=== PATIENT | female | born 1985 | race Caucasian/White ===

== ENCOUNTER 2016-03-29 09:50 | Day surgery (SDC) | payer OTHER ==
[~2016-03-29] VITALS: Ht 165.1 cm; Wt 94.3 kg
[~2016-03-29 09:50] MED LIST: IBUPROFEN800 MG PO; LO LOESTRIN FE1 EACH PO; PRENATAL TABLE1 EAC3 PO
[2016-03-29 10:10] VITALS: BP 136/90
[2016-03-29 14:45] VITALS: BP 117/80
[2016-03-29 15:44] VITALS: BP 129/75
== END 2016-03-29 15:50 | disposition home or self-care (01) ==
LOC: SDC 09:50
PROC: 0UDB8ZX Extraction of Endometrium, Via Natural or Artificial Opening Endoscopic, Diagnostic (ICD-10-PCS; principal; 2016-03-29)
DX: N84.0 Polyp of corpus uteri (principal); N80.9 Endometriosis, unspecified; R93.8 Abnormal findings on diagnostic imaging of other specified body structures
CPT/HCPCS: 88305; J1100; J1885; J2250; J2405; J3010

== ENCOUNTER 2016-11-24 13:38 | Emergency (ER) | payer OTHER ==
[~2016-11-24] VITALS: Ht 165.1 cm; Wt 102.6 kg
[2016-11-24 14:45] LABS: ADD MIUA? YES; BILIRUBIN NEGATIVE; BLOOD NEGATIVE; COLOR YELLOW ((YELLOW)); GLUCOSE (STRIP) NEGATIVE; KETONES NEGATIVE; LEUKOCYTES NEGATIVE; NITRITE NEGATIVE; PROTEIN (STRIP) NEGATIVE; SPECIFIC GRAVITY 1.016 (1.000-1.030); UROBILINOGEN 0.2 MG/DL (0.2-1.0)
[2016-11-24 14:55] LABS: BACTERIA RARE /HPF; EPITHELIAL CELLS 1+ /HPF; MUCUS TRACE /LPF; RED BLOOD CELLS 0-5 /HPF (0-5); UCUL ADDED? NO; UNCLASSIFIED CRYSTALS 2+ /HPF; WHITE BLOOD CELLS 0-5 /HPF (0-5)
[2016-11-24 16:31] VITALS: BP 126/81
== END 2016-11-24 16:32 | disposition home or self-care (01) ==
LOC: EME 13:38
PROVIDERS: Emergency Medicine
DX: O26.893 Other specified pregnancy related conditions, third trimester (principal); R42 Dizziness and giddiness; R11.0 Nausea; Z3A.29 29 weeks gestation of pregnancy
CPT/HCPCS: 81003; 93005; 99281; 99284; J7040

== ENCOUNTER 2016-12-04 18:34 | Outpatient (CLI) | payer OTHER ==
[~2016-12-04] VITALS: Ht 165.1 cm; Wt 102.5 kg
[~2016-12-04 18:34] MED LIST changes: +LABETALOL HCL100 MG PO
[2016-12-04] MEDS ORDERED: FA-80.8 MG PO (18:48)
[2016-12-04] MEDS ORDERED: COLACE100 MG PO (18:48)
[2016-12-04 18:51] VITALS: BP 125/76
[2016-12-05] MEDS ORDERED: ZITHROMAX500 MG PO (19:06)
[2016-12-05] MEDS ORDERED: PEPCID20 MG PO (19:06)
== END 2016-12-04 20:20 | disposition home or self-care (01) ==
LOC: LDRP-OP 18:34 → 2WEST 18:35 → LDRP-OP 03-09 02:52
DX: O16.3 Unspecified maternal hypertension, third trimester (principal); Z3A.30 30 weeks gestation of pregnancy; O99.513 Diseases of the respiratory system complicating pregnancy, third trimester; O30.003 Twin pregnancy, unspecified number of placenta and unspecified number of amniotic sacs, third trimester
CPT/HCPCS: 59025; G0378

== ENCOUNTER 2016-12-05 15:59 | Outpatient (CLI) | payer OTHER ==
[2016-12-05] VITALS (8 sets, daily range): BP systolic 134–157; BP diastolic 78–95
[~2016-12-05 15:59] MED LIST changes: +COLACE100 MG PO; +FA-80.8 MG PO
[2016-12-05 18:18] LABS: BASOPHIL COUNT 0.1 K/uL (0-0.1); EOSINOPHIL (%) 0.1 % (0-5); HEMATOCRIT 37.9 % (36.0-46.0); IMMATURE GRANULOCYTE (%) 3.6 % (0.0-0.7); IMMATURE GRANULOCYTE COUNT 0.7 K/uL; INSTRUMENT ABS NEUTROPHIL CT 15.7 K/uL; LYMPHOCYTE COUNT 1.8 K/uL (1.0-2.8); MCH 30.7 PG (29.0-34.0); MCHC 33.8 G/DL (30.0-36.0); MCV 90.9 FL (83-99); MEAN PLAT.VOLUME 11.5 uM^3 (9.5-12.4); MONOCYTE (%) 7.8 % (3-12); MONOCYTE COUNT 1.6 K/uL (0-0.8); NEUTROPHIL (%) 78.9 % (45-76); NEUTROPHIL COUNT 15.7 K/uL (1.8-6.4); PLATELET COUNT 188 K/uL (156-360); RBC DIS.WIDTH-CV 13.6 % (11.8-14.6); RBC DIS.WIDTH-SD 45.2 % (39-53); RED BLOOD COUNT 4.17 M/uL (3.80-5.20); WHITE BLOOD COUNT 19.8 K/uL (4.1-10.2)
[2016-12-05 18:26] LABS: UR CREATININE CONCENTRATION 41.5 MG/DL
[2016-12-05 18:36] LABS: ANION GAP 11 MEQ/L (2-14); CHLORIDE 107 MEQ/L (99-109); POTASSIUM 3.4 MEQ/L (3.7-5.4); SAMPLE HEMOLYSIS CHECK 0; SAMPLE ICTERIC CHECK 0; SAMPLE LIPEMIA CHECK 0; SODIUM 137 MEQ/L (136-147); TOTAL BILIRUBIN 0.2 MG/DL (0.0-1.0)
[2016-12-05 18:41] LABS: ALKALINE PHOSPHATASE 108 IU/L (3-129); GFR ESTIMATE (CALCULATED) > 59 mL/min/; GLUCOSE 127 mg/dL (70-99); UREA NITROGEN (BUN) 10 mg/dL (9-23); URIC ACID 6.3 mg/dL (3.1-9.2)
[2016-12-05] MEDS ORDERED: PEPCID20 MG PO (19:06)
[2016-12-05] MEDS ORDERED: ZITHROMAX500 MG PO (19:06)
== END 2016-12-05 19:15 | disposition home or self-care (01) ==
LOC: LDRP-OP 15:59 → 2WEST 16:00 → LDRP-OP 03-09 21:15
PROVIDERS: Obstetrics & Gynecology Gynecology
DX: O26.893 Other specified pregnancy related conditions, third trimester (principal); Z3A.31 31 weeks gestation of pregnancy; R23.2 Flushing
CPT/HCPCS: 59025; 80053; 82570; 84156; 84550; 85025; G0378

== ENCOUNTER 2017-01-01 14:47 | Outpatient (CLI) | payer OTHER ==
[~2017-01-01 14:47] MED LIST changes: +PEPCID20 MG PO; +ZITHROMAX500 MG PO
[2017-01-01 15:06] VITALS: BP 135/80
[2017-01-01] MEDS ORDERED: LABETALOL HCL200 MG PO (15:13)
[2017-01-01] MEDS ORDERED: COLACE100 MG PO (15:15)
== END 2017-01-01 15:58 | disposition home or self-care (01) ==
LOC: LDRP-OP 14:47 → 2WEST 14:48 → LDRP-OP 03-09 19:26
DX: O36.5930 Maternal care for other known or suspected poor fetal growth, third trimester, not applicable or unspecified (principal); O30.003 Twin pregnancy, unspecified number of placenta and unspecified number of amniotic sacs, third trimester; Z3A.35 35 weeks gestation of pregnancy
CPT/HCPCS: 59025; G0378

== ENCOUNTER 2017-01-01 20:01 | Outpatient (CLI) | payer OTHER ==
[~2017-01-01 20:01] MED LIST changes: +LABETALOL HCL200 MG PO
[2017-01-01 20:19] VITALS: BP 121/70
== END 2017-01-01 23:07 | disposition home or self-care (01) ==
LOC: LDRP-OP 20:01 → 2WEST 20:02 → LDRP-OP 03-09 16:25
DX: O36.5930 Maternal care for other known or suspected poor fetal growth, third trimester, not applicable or unspecified (principal); O30.003 Twin pregnancy, unspecified number of placenta and unspecified number of amniotic sacs, third trimester; Z3A.35 35 weeks gestation of pregnancy
CPT/HCPCS: 59025; 76810; 76815; 76818; G0378

== ENCOUNTER 2017-01-04 10:07 | Inpatient (IN) | payer OTHER ==
[2017-01-04] VITALS (8 sets, daily range): BP systolic 111–126; BP diastolic 61–78
[~2017-01-04] VITALS: Ht 165.1 cm; Wt 109.5 kg
[2017-01-04 11:17] LABS: EOSINOPHIL (%) 0.6 % (0-5); EOSINOPHIL COUNT 0.1 K/uL (0-0.3); HEMATOCRIT 38.7 % (36.0-46.0); IMMATURE GRANULOCYTE COUNT 0.1 K/uL; INSTRUMENT ABS NEUTROPHIL CT 8.2 K/uL; LYMPHOCYTE COUNT 1.4 K/uL (1.0-2.8); MCH 31.1 PG (29.0-34.0); MCHC 34.4 G/DL (30.0-36.0); MCV 90.6 FL (83-99); MEAN PLAT.VOLUME 12.4 uM^3 (9.5-12.4); MONOCYTE (%) 7.9 % (3-12); MONOCYTE COUNT 0.8 K/uL (0-0.8); NEUTROPHIL COUNT 8.2 K/uL (1.8-6.4); PLATELET COUNT 137 K/uL (156-360); RBC DIS.WIDTH-CV 14.2 % (11.8-14.6); RBC DIS.WIDTH-SD 47.2 % (39-53); RED BLOOD COUNT 4.27 M/uL (3.80-5.20); WHITE BLOOD COUNT 10.6 K/uL (4.1-10.2)
[2017-01-04] MEDS ORDERED: MOTRIN800 MG PO (14:55)
[2017-01-04] MEDS ORDERED: PERCOCET 5/31 TABLET PO (14:55)
[2017-01-05 07:05] VITALS: BP 114/57
[2017-01-05 07:18] LABS: EOSINOPHIL (%) 0.2 % (0-5); IMMATURE GRANULOCYTE (%) 0.8 % (0.0-0.7); IMMATURE GRANULOCYTE COUNT 0.1 K/uL; INSTRUMENT ABS NEUTROPHIL CT 12.2 K/uL; LYMPHOCYTE COUNT 1.9 K/uL (1.0-2.8); MCV 91.1 FL (83-99); MEAN PLAT.VOLUME 12.1 uM^3 (9.5-12.4); MONOCYTE (%) 6.8 % (3-12); MONOCYTE COUNT 1.1 K/uL (0-0.8); NEUTROPHIL (%) 79.4 % (45-76); NEUTROPHIL COUNT 12.2 K/uL (1.8-6.4); PLATELET COUNT 127 K/uL (156-360); RBC DIS.WIDTH-CV 14.1 % (11.8-14.6); RED BLOOD COUNT 3.84 M/uL (3.80-5.20); WHITE BLOOD COUNT 15.4 K/uL (4.1-10.2)
[2017-01-05 11:02] VITALS: BP 99/50
[2017-01-05 15:04] VITALS: BP 129/77
[2017-01-06 07:59] VITALS: BP 142/77
[2017-01-06 12:51] VITALS: BP 142/96
[2017-01-06 16:41] VITALS: BP 142/88
[2017-01-07 07:47] VITALS: BP 145/71
[2017-01-07 11:51] VITALS: BP 160/78
[2017-01-07 14:39] VITALS: BP 145/93
[2017-01-07 19:33] VITALS: BP 131/82
[2017-01-07 23:28] VITALS: BP 133/85
[2017-01-08 02:59] VITALS: BP 132/79
[2017-01-08 09:54] VITALS: BP 135/75
[2017-01-08] MEDS ORDERED: NIFEDIPINE ER30 MG PO (10:45)
== END 2017-01-08 14:41 | disposition home or self-care (01) | DRG 765 ==
LOC: LDRP-OP 10:07 → 2WEST 10:08 → LDRP-OP 03-09 23:42
PROVIDERS: Obstetrics & Gynecology; Obstetrics & Gynecology Obstetrics
DX: O60.14X1 Preterm labor third trimester with preterm delivery third trimester, fetus 1 (principal); O60.14X2 Preterm labor third trimester with preterm delivery third trimester, fetus 2; O30.043 Twin pregnancy, dichorionic/diamniotic, third trimester; Z37.2 Twins, both liveborn; O32.1XX2 Maternal care for breech presentation, fetus 2; O36.5931 Maternal care for other known or suspected poor fetal growth, third trimester, fetus 1; O13.4 Gestational [pregnancy-induced] hypertension without significant proteinuria, complicating childbirth; O99.214 Obesity complicating childbirth; E66.9 Obesity, unspecified; Z68.35 Body mass index [BMI] 35.0-35.9, adult; Z30.2 Encounter for sterilization; Z3A.35 35 weeks gestation of pregnancy; O99.52 Diseases of the respiratory system complicating childbirth; J45.909 Unspecified asthma, uncomplicated
CPT/HCPCS: 59025; 76810; 76815; 76818; 85025; 86850; 86900; 86901; 88302; 88307; G0378; J1100; J2274; J2405; J2550; J7120

== ENCOUNTER 2017-07-11 09:50 | Emergency (ER) | payer OTHER ==
[~2017-07-11] VITALS: Ht 165.1 cm; Wt 96.7 kg
[~2017-07-11 09:50] MED LIST changes: +MOTRIN800 MG PO; +NIFEDIPINE ER30 MG PO; +PERCOCET 5/31 TABLET PO
[2017-07-11 11:32] LABS: HEMATOCRIT 45.6 % (36.0-46.0); HEMOGLOBIN 15.8 G/DL (11.9-15.5); MCH 29.8 PG (29.0-34.0); MCHC 34.6 G/DL (30.0-36.0); MCV 85.9 FL (83-99); PLATELET COUNT 253 K/uL (156-360); RBC DIS.WIDTH-CV 12.4 % (11.8-14.6); RED BLOOD COUNT 5.31 M/uL (3.80-5.20); WHITE BLOOD COUNT 13.3 K/uL (4.1-10.2)
[2017-07-11 11:41] LABS: ALBUMIN 4.3 g/dL (3.2-4.8)
[2017-07-11 11:42] LABS: CHLORIDE 105 mEq/L (99-109); POTASSIUM 3.8 mEq/L (3.7-5.4); SODIUM 137 mEq/L (136-147)
[2017-07-11 11:44] LABS: GLUCOSE 103 mg/dL (70-99)
[2017-07-11 11:46] LABS: TOTAL BILIRUBIN 0.9 mg/dL (0.0-1.0)
[2017-07-11 11:47] LABS: ALKALINE PHOSPHATASE 99 IU/L (3-129)
[2017-07-11 11:48] LABS: CREATININE 0.9 mg/dL (0.6-1.3); GFR ESTIMATE (CALCULATED) > 59 mL/min/
[2017-07-11 11:48] LABS: APPEARANCE CLEAR ((CLEAR)); BILIRUBIN NEGATIVE; BLOOD NEGATIVE; COLOR YELLOW ((YELLOW)); GLUCOSE (STRIP) NEGATIVE; KETONES NEGATIVE; LEUKOCYTES NEGATIVE; NITRITE NEGATIVE; PROTEIN (STRIP) NEGATIVE; SPECIFIC GRAVITY 1.023 (1.000-1.030); UCUL ADDED? NO; UROBILINOGEN 0.2 MG/DL (0.2-1.0)
[2017-07-11 11:49] LABS: AST (GOT) 17 IU/L (2-34); UREA NITROGEN (BUN) 12 mg/dL (9-23)
[2017-07-11 11:51] LABS: ALT (GPT) 29 IU/L (3-49); LIPASE 9 U/L (1.0-51.0)
[2017-07-11 11:59] LABS: QUANTITATIVE HCG < 4.0 MIU/ML
[2017-07-11 14:31] VITALS: BP 115/72
== END 2017-07-11 14:34 | disposition home or self-care (01) ==
LOC: EME 09:50
PROVIDERS: Nurse Practitioner Family
DX: R10.11 Right upper quadrant pain (principal); R11.2 Nausea with vomiting, unspecified; R19.7 Diarrhea, unspecified; K76.0 Fatty (change of) liver, not elsewhere classified; J45.909 Unspecified asthma, uncomplicated; Z88.2 Allergy status to sulfonamides; Z88.0 Allergy status to penicillin
CPT/HCPCS: 74177; 80053; 81003; 83690; 84702; 85027; 99281; 99285; J2405; J3010

== ENCOUNTER 2017-09-01 06:29 | Day surgery (SDC) | payer OTHER ==
[~2017-09-01] VITALS: Ht 165.1 cm; Wt 101.6 kg
[2017-09-01 06:44] VITALS: BP 120/77
[2017-09-01] MEDS ORDERED: ENDOCET 5-3251 EACH PO (11:04)
[2017-09-01] MEDS ORDERED: IBUPROFEN800 MG PO (11:04)
[2017-09-01 14:00] VITALS: BP 147/65
[2017-09-01 14:55] VITALS: BP 115/67
== END 2017-09-01 15:10 | disposition home or self-care (01) ==
LOC: SDC 06:29
PROC: 0TJB8ZZ Inspection of Bladder, Via Natural or Artificial Opening Endoscopic (ICD-10-PCS; principal; 2017-09-01)
PROC: 0WQF4ZZ Repair Abdominal Wall, Percutaneous Endoscopic Approach (ICD-10-PCS; principal; 2017-09-01)
PROC: 0UT94ZZ Resection of Uterus, Percutaneous Endoscopic Approach (ICD-10-PCS; principal; 2017-09-01)
PROC: 0UT74ZZ Resection of Bilateral Fallopian Tubes, Percutaneous Endoscopic Approach (ICD-10-PCS; principal; 2017-09-01)
DX: N84.0 Polyp of corpus uteri (principal); N93.8 Other specified abnormal uterine and vaginal bleeding; K43.6 Other and unspecified ventral hernia with obstruction, without gangrene; Z88.2 Allergy status to sulfonamides; Z91.040 Latex allergy status; Z91.013 Allergy to seafood
CPT/HCPCS: 88305; 88307; C1781; J0131; J0330; J0690; J1100; J1170; J1885; J2250; J2405; J2710; J2795; J3010; J7643; Q0175